=== PATIENT | female | born 1980 | race Caucasian/White ===

== ENCOUNTER 2017-10-27 11:49 | Inpatient (IN) | payer OTHER ==
[~2017-10-27] VITALS: Ht 154.9 cm; Wt 64.4 kg
[~2017-10-27 11:49] MED LIST: AMOXICILLIN500 MG PO
[2017-10-27] MEDS ORDERED: IRON18 MG PO (13:56)
[2017-10-27] MEDS ORDERED: OBSTETRIX EC C1 EACH PO (13:56)
[2017-10-29] MEDS ORDERED: FAMOTIDINE20 MG/2 M1 IV (08:59)
[2017-10-29] MEDS ORDERED: NIFEDIPINE ER30 MG PO (08:59)
== END 2017-10-29 09:32 | disposition home or self-care (01) | DRG 392 ==
LOC: LDR 11:49
PROC: 4A1HXCZ Monitoring of Products of Conception, Cardiac Rate, External Approach (ICD-10-PCS; principal; 2017-10-27)
DX: K52.89 Other specified noninfective gastroenteritis and colitis (principal); O47.03 False labor before 37 completed weeks of gestation, third trimester; E86.0 Dehydration

== ENCOUNTER 2017-11-29 18:05 | Inpatient (IN) | payer OTHER ==
[~2017-11-29] VITALS: Ht 154.9 cm; Wt 68.7 kg
[~2017-11-29 18:05] MED LIST changes: +FAMOTIDINE20 MG/2 M1 IV; +IRON18 MG PO; +NIFEDIPINE ER30 MG PO; +OBSTETRIX EC C1 EACH PO
== END 2017-12-02 12:17 | DRG 775 ==
LOC: LDR 18:05 → OB/GYN 18:05
PROC: 10E0XZZ Delivery of Products of Conception, External Approach (ICD-10-PCS; principal; 2017-11-30)
PROC: 0KQM0ZZ Repair Perineum Muscle, Open Approach (ICD-10-PCS; 2017-11-30)
PROC: 10907ZC Drainage of Amniotic Fluid, Therapeutic from Products of Conception, Via Natural or Artificial Opening (ICD-10-PCS; 2017-11-30)
PROC: 3E033VJ Introduction of Other Hormone into Peripheral Vein, Percutaneous Approach (ICD-10-PCS; 2017-11-30)
PROC: 4A033R1 Measurement of Arterial Saturation, Peripheral, Percutaneous Approach (ICD-10-PCS; 2017-11-30)
PROC: 4A1HXCZ Monitoring of Products of Conception, Cardiac Rate, External Approach (ICD-10-PCS; 2017-11-30)
DX: O60.14X0 Preterm labor third trimester with preterm delivery third trimester, not applicable or unspecified (principal); O70.1 Second degree perineal laceration during delivery; O14.14 Severe pre-eclampsia complicating childbirth; Z3A.36 36 weeks gestation of pregnancy; Z37.0 Single live birth

== ENCOUNTER 2023-06-18 15:13 | Inpatient (IN) | payer OTHER ==
[~2023-06-18] VITALS: Ht 66 cm; Wt 54.4 kg
--- NOTE | 2023-06-18 16:02 | NUR ---
SE RECIBE PTE ALERTA DESORIENTADA EN COMPANIA DE FAMILIAR EL CUAL REFIERE PTE PRESENTA PARALISIS FACIAL,DOLOR EN EL BRAZO DERECHO Y EL ELIECER DE HOY A ESTADO DESORIENTADA HABALANDO INCOHERENCIAS.SE MERLINE EKG SE PRESENTA A EL CUAL ORDENA UBICAR PTE EN FAST TRACK.
[2023-06-18] MEDS ORDERED: 0.9 % SODIUM CHLORIDE 1,000 ML IV ONE (16:30)
[2023-06-18 17:19] LABS: HEMATOCRIT 39.9 % (36.0-45.00); HEMOGLOBIN 13.4 g/dL (12.0-15.00); MEAN CELL VOLUME 79.5 fL (80.00-100.00); MEAN CORPUSCULAR HEMOGLOBIN 26.7 pg (27.00-32.0); MEAN CORPUSCULAR HGB CONC 33.6 g/dl (32.0-36.0); PLATELET COUNT 301 K/uL (150-450); RED BLOOD COUNT 5.02 M/uL (4.00-6.00); RED CELL DISTRIBUTION WIDTH 13.6 % (11.5-14.5)
--- NOTE | 2023-06-18 17:22 | NUR ---
SE RECIBE PTE ALERTA ORIENTADA X3.SE BIANCA MUESTRAS DE LABORATORIO USANDO MEDIDAS ASEPTICAS.SE ADMINISTRAN MEDICAMENTO VICKEY ORDEN MEDICA.SE ORIENTA PTE SOBRE IMPORTANCIA DE [place] MEDICO POR ORDEN MEDICA DE SE UBICA PTE EN OBSERVACION.MANEJADA POR IJOEMA HOLLIDAY.
[2023-06-18 17:32] LABS: URINE APPEARANCE Cloudy; URINE BILIRRUBIN Negative (NEGATIVE); URINE BLOOD Moderate; URINE COLOR Yellow; URINE EPITHELIAL CELLS 200.5 uL (0.0-38.8); URINE GLUCOSE Negative (NEGATIVE); URINE LEUKOCYTE Small; URINE NITRATE Negative; URINE PROTEIN 30 (NEGATIVE); URINE RBC 10.7 uL (0.0-20.8); URINE WBC 164.3 uL (0.0-23.2)
[2023-06-18 17:43] LABS: INR < 0.93; PARTIAL THROMBOPLASTIN TIME 27.6 SECONDS (22.0-34.0); PROTHROMBIN TIME 9.5 SECONDS (9.0-11.5)
[2023-06-18 17:45] LABS: ALBUMIN 4.6 gm/dL (3.4-5.0); BILIRUBIN TOTAL 0.34 mg/dL (0.3-1.2); CALCIUM 9.6 mg/dL (8.5-10.1); CREATININE SERUM 0.75 mg/dL (0.55-1.02); GFR 85.58; GLOBULINA 4.5 G/DL (2.4-3.5); POTASSIUM 3.71 mEq/L (3.5-5.1); TOTAL PROTEIN 9.1 gm/dL (6.4-8.2)
[2023-06-18 17:47] LABS: URINE BACTERIA > 9821.5 uL (0.0-1933); URINE CRYSTALS FEW /HPF; URINE MUCUS MODERATE
[2023-06-18] MEDS ORDERED: DEXAMETHASONE SODIUM PHOSPHATE 4 MG/ML VIAL IV ONE (20:15)
[2023-06-18] MEDS ORDERED: ASPIRIN 325 MG TABLET PO ONE (20:15)
--- NOTE | 2023-06-18 23:25 | NUR ---
SE RECIBE PTE DE TURNO ANTERIOR POR RN JUAN. PTE FEMINA DE 40 ANOS DE EDAD, ACTIVA EN YANET EN HILL NIVEL MAS BAJO Y CON BARANDAS ELEVADAS POR HILL SEGURIDAD, PTE EN POSICION SEMI SENTADA. SE OBSERVA CON BUEN PATRON RESPIRATORIO. SE LE BIANCA S/V, ABDOMEN BLANDO AL TACTO Y CON PERISTALSIS PRESENTE. PTE CANALIZADO CON ANGIO #20 EN BRAZO DERECHO, AREA STAN DE EDEMA Y ENROJECIMIENTO, RECIBIENDO INFUSION DE 0.9NSS @125 ML/HR. PTE CONECTADA A MONITOR CARDIACO Y OXIMETRIA. SE MANTIENE BAJO OBSERVACION POR CAMBIO.
[2023-06-19] MEDS ORDERED: CLOPIDOGREL BISULFATE 75 MG TABLET PO STA (00:23)
[2023-06-19] MEDS ORDERED: 0.9 % SODIUM CHLORIDE 1,000 ML IV SCH (01:00)
[2023-06-19] MEDS ORDERED: ATORVASTATIN CALCIUM 40 MG TABLET PO SCH (01:12)
[2023-06-19] MEDS ORDERED: ACETAMINOPHEN 500 MG GEL..CAP PO PRN (01:15)
[2023-06-19] MEDS ORDERED: ONDANSETRON HCL 4 MG in 0.9 % SODIUM CHLORIDE 50 ML IV PRN (01:15)
[2023-06-19] MEDS ORDERED: CLOPIDOGREL BISULFATE 75 MG TABLET PO SCH (09:00)
[2023-06-19] MEDS ORDERED: FAMOTIDINE/PF 20 MG in 0.9 % SODIUM CHLORIDE 8 ML IV PUSH SCH ×2 (09:00→21:00)
[2023-06-19 16:25] LABS: COCAINE NEGATIVE (NEGATIVE); METHADONE NEGATIVE (NEGATIVE); OPIATES NEGATIVE (NEGATIVE); THC ( Cannabinoids) NEGATIVE (NEGATIVE)
[2023-06-20 06:43] LABS: CHOL HDL RATIO 2.5 (0-5.0); TSH 2.17 uIU/mL (0.358-3.74)
[2023-06-20] MEDS ORDERED: ENOXAPARIN SODIUM 40 MG/0.4 ML SYRINGE SUBCUTANEO SCH (09:00)
[2023-06-20 10:08] LABS: HOMOCYSTEINE 3.6 umol/L (0.0-14.5)
[2023-06-22] MEDS ORDERED: FentaNYL CITRATE/PF 50MCG/ML 2ML VIAL IJ ONE (14:15)
[2023-06-22 16:11] LABS: ANTI CARDIO IGG < 9 GPL U/mL (0-14); ANTI CARDIO IGM 10 MPL U/mL (0-12)
[2023-06-23 14:07] LABS: Protein s 55 % (60-150); Protein s free 77 % (61-136)
[2023-06-23 18:07] LABS: beta 2 gly iga < 9 (0-25); beta 2 gly igg < 9 (0-20); beta 2 gly igm < 9 (0-32)
== END 2023-06-25 11:28 | disposition designated cancer center or children's hospital (05) | DRG 65 ==
LOC: ER 15:13 → ICU 06-19 01:17 → ICU-2 06-19 01:17 → ICU 06-19 04:28 → MEDI 06-20 12:07
PROVIDERS: General Practice; Internal Medicine Hematology & Oncology; Psychiatry & Neurology Clinical Neurophysiology; ADMIT Internal Medicine; ATTEND Internal Medicine
PROC: BW28ZZZ Computerized Tomography (CT Scan) of Head (ICD-10-PCS; principal; 2023-06-18)
PROC: B030YZZ Magnetic Resonance Imaging (MRI) of Brain using Other Contrast (ICD-10-PCS; 2023-06-19)
PROC: B24BYZZ Ultrasonography of Heart with Aorta using Other Contrast (ICD-10-PCS; 2023-06-19)
PROC: B345ZZZ Ultrasonography of Bilateral Common Carotid Arteries (ICD-10-PCS; 2023-06-19)
PROC: B54DZZZ Ultrasonography of Bilateral Lower Extremity Veins (ICD-10-PCS; 2023-06-19)
PROC: 4A12X4Z Monitoring of Cardiac Electrical Activity, External Approach (ICD-10-PCS; 2023-06-20)
PROC: B24BZZ4 Ultrasonography of Heart with Aorta, Transesophageal (ICD-10-PCS; 2023-06-21)
DX: I63.9 Cerebral infarction, unspecified (principal); Q21.10 Atrial septal defect, unspecified; I63.521 Cerebral infarction due to unspecified occlusion or stenosis of right anterior cerebral artery; F80.2 Mixed receptive-expressive language disorder
CPT/HCPCS: 70544; 70548

== ENCOUNTER 2024-06-17 13:13 | Emergency (ER) | payer OTHER ==
[~2024-06-17] VITALS: Ht 162.6 cm; Wt 59.0 kg
[2024-06-17] MEDS ORDERED: CHILDREN'S ASPI81 MG (13:46)
[2024-06-17] MEDS ORDERED: PLAVIX75 MG PO (13:47)
[2024-06-17] MEDS ORDERED: CRESTOR40 MG PO (13:47)
[2024-06-17 14:47] LABS: HEMATOCRIT 37.9 % (36.0-45.00); HEMOGLOBIN 12.1 g/dL (12.0-15.00); MEAN CELL VOLUME 79.5 fL (80.00-100.00); MEAN CORPUSCULAR HEMOGLOBIN 25.4 pg (27.00-32.0); PLATELET COUNT 310 K/uL (150-450); RED BLOOD COUNT 4.76 M/uL (4.00-6.00); RED CELL DISTRIBUTION WIDTH 14.4 % (11.5-14.5)
[2024-06-17 14:57] LABS: PH,URINE 5.5 (5.0-8.0); URINE APPEARANCE Clear; URINE BILIRRUBIN Negative (NEGATIVE); URINE BLOOD Negative; URINE COLOR Yellow; URINE GLUCOSE Negative (NEGATIVE); URINE KETONE Trace (NEGATIVE); URINE LEUKOCYTE Small; URINE NITRATE Negative; URINE PROTEIN Trace (NEGATIVE)
[2024-06-17 14:58] LABS: URINE EPITHELIAL CELLS 70.9 uL (0.0-38.8); URINE RBC 30.1 uL (0.0-20.8)
[2024-06-17 15:24] LABS: URINE MUCUS HEAVY
== END 2024-06-17 18:06 | disposition home or self-care (01) ==
LOC: ER 13:16
PROVIDERS: Emergency Medicine
DX: S09.8XXA Other specified injuries of head, initial encounter (principal); W10.8XXA Fall (on) (from) other stairs and steps, initial encounter; Y93.E9 Activity, other interior property and clothing maintenance; Y92.098 Other place in other non-institutional residence as the place of occurrence of the external cause; Y99.8 Other external cause status; Z20.822 Contact with and (suspected) exposure to COVID-19